=== PATIENT | female | born 1990 | race Caucasian/White ===

== ENCOUNTER 2016-10-23 19:48 | Emergency (ER) | payer BC, OTHER ==
[~2016-10-23] VITALS: Ht 172.7 cm; Wt 77.1 kg
[2016-10-23] MEDS ORDERED: LIDOCAINE 1% INJ 20 ML (XYLOCAINE) VIAL INJ STA (20:06)
--- NOTE | 2016-10-23 20:36 | ED Upper Extremity ---
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 Onset: just prior to arrival Severity: mild Pain/Injury Location: right 2nd finger Method of Injury: incised Allergies and Home Medications Allergies Coded Allergies: No Known Drug Allergies (Unverified , 10/23/16) Home Medications Unable to Obtain Active Prescriptions or Reported Meds Date Seen by Provider: Oct 23, 2016 Time Seen by Provider: 20:00 Constitutional: no symptoms reported, see HPI EENTM: no symptoms reported, see HPI Respiratory: no symptoms reported, see HPI Cardiovascular: no symptoms reported, see HPI Gastrointestinal: no symptoms reported, see HPI Genitourinary: no symptoms reported, see HPI Musculoskeletal: no symptoms reported, see HPI Skin: see HPI, other (laceration right index finger) Psychiatric/Neurological: No Symptoms Reported, See HPI All Other Systems Reviewed Negative Unless Noted: Yes Past Twwfsra-Xhlcuj-Zzozte Hx Patient Social History Alcohol Use: Occasionally Uses Recreational Drug Use: No Smoking Status: Never a Smoker 2nd Hand Smoke Exposure: No Recent Foreign Travel: No Contact w/Someone Who Travel: No Recent Infectious Disease Expo: No Recent Hopitalizations: No Immunizations Up To Date Tetanus Booster (TDap): Less than 5yrs Seasonal Allergies Seasonal Allergies: No Reproductive System : No Reviewed Nursing Assessment Reviewed/Agree w Nursing PMH: Yes Physical Exam Vital Signs Vital Sign - Last 12Hours 10/23/16 19:54 Temp 98.7 Pulse 77 Resp 18 B/P (MAP) 148/94 Pulse Ox 98 O2 Delivery Room Air Capillary Refill : Less Than 3 Seconds General Appearance: WD/WN, no apparent distress Cardiovascular: normal peripheral pulses, regular rate, rhythm, no edema, no murmur Respiratory: chest non-tender, lungs clear, normal breath sounds, no respiratory distress, no accessory muscle use Hand: Right, laceration (DIP joint, index finger right hand and 1.5 cm) Neurologic/Tendon: normal sensation, normal motor functions, normal tendon functions Neurologic/Psychiatric: no motor/sensory deficits, alert, normal mood/affect, oriented x 3 Skin: normal color, warm/dry Laceration Repair : Wound Location: Upper Extremities (right index finger) Other Wound Location DIP joint ulnar side, Wound Length (cm): 1.5 Wound's Depth, Shape: superficial Wound Explored: clean Irrigated w/ Saline (ccs): 500 Betadine Prep?: Yes Anesthesia: 1% Lidocaine Volume Anesthetic (ccs): 2 Suture: Ethlion Suture Size: 4-0 Number of Sutures: 3 Sterile Dressing Applied?: Yes Progress Patient tolerated procedure well, wound cleaned and bulky compressive dressing applied. Progress/Results/Core Measures Results/Orders My Orders Orders - TEIM BEASLEY Lidocaine 1% Injection (Xylocaine 1% Inj (10/23/16 20:06) Vital Signs/I&O Vital Sign - Last 12Hours 10/23/16 10/23/16 19:54 20:41 Temp 98.7 98.7 Pulse 77 77 Resp 18 18 B/P (MAP) 148/94 Pulse Ox 98 98 O2 Delivery Room Air Blood Pressure Mean: 112 Departure Impression Impression: Primary Impression: Laceration of right index finger Qualified Codes: S61.210A - Laceration without foreign body of right index finger without damage to nail, initial encounter Disposition: 01 HOME, SELF-CARE Condition: Improved Departure-Patient Inst. Decision time for Depature: 20:15 Referrals: NO,LOCAL PHYSICIAN (PCP/Family) Primary Care Physician Patient Instructions: Laceration Repair With Stitches (DC) Add. Discharge Instructions: Keep laceration site clean and dry for 48 hours with current dressing in place. After 48 hours May shower as usual, clean the laceration site with alcohol after showering and apply Band-Aid. May leave open to air at night if no bleeding or drainage. Avoid emerging right index finger in pools, dishwater, hot tubs, lakes or ocean 3 weeks. Return to emergency department in 7-10 days for suture removal. Turned to emergency department sooner for redness around laceration site, foul- smelling or discolored drainage, increased pain, fevers, or new problems. All discharge instructions reviewed with patient and/or family. Voiced understanding. Scripts Unable to Obtain Active Prescriptions or Reported Meds TEMI BEASLEY Oct 23, 2016 20:36
[2016-10-23 20:41] VITALS: BP 148/94
== END 2016-10-23 20:41 | disposition home or self-care (01) ==
LOC: ER 19:51
DX: S61.210A Laceration without foreign body of right index finger without damage to nail, initial encounter (principal); W26.0XXA Contact with knife, initial encounter; Y92.000 Kitchen of unspecified non-institutional (private) residence as the place of occurrence of the external cause
CPT/HCPCS: 12011